=== PATIENT | male | born 1985 | race Caucasian/White ===

== ENCOUNTER 2023-07-05 13:44 | Emergency (ER) | payer OTHER ==
[~2023-07-05] VITALS: Ht 170.2 cm; Wt 92.5 kg
[2023-07-05 13:55] VITALS: O2SAT 98
[2023-07-05] MEDS ORDERED: ALPR-394 PO (14:06)
[2023-07-05] MEDS ORDERED: EMTR1TAB12 PO (14:06)
[2023-07-05] MEDS ORDERED: FINA1TAB18 PO (14:06)
[2023-07-05] MEDS ORDERED: METF-414 PO (14:06)
[2023-07-05] MEDS ORDERED: LOSA100T33 PO (14:06)
[2023-07-05] MEDS ORDERED: DILTIAZEM HCL 5MG/ML 5ML VIAL IV ONE (14:30)
[2023-07-05] MEDS ORDERED: DILTIAZEM HCL 5MG/ML 5ML VIAL IV NR ×2 (14:38→16:15)
[2023-07-05 15:12] LABS: CHLORIDE 111 mEq/L (98-107); INDEX HEMOLYSI 2 (1-3); INDEX ICTERIC 1 (1-4); INDEX LIPEMIC 1 (1-3); SODIUM 139 mEq/L (136-145)
[2023-07-05 15:16] LABS: BASOPHILS % 0.9 % (0.0-2.0); EOSINOPHILS % 1.5 % (0.0-5.0); HEMATOCRIT. 45.3 % (42.0-52.0); HEMOGLOBIN. 15.4 g/dL (14.0-18.0); MEAN CORPUSCULAR HEMOGLOBIN 30.6 pg (28.0-32.0); MEAN CORPUSCULAR HGB CONC 33.9 g/dL (31.0-37.0); MEAN CORPUSCULAR VOLUME 90.3 fL (80.0-94.0); MEAN PLATELET VOLUME 7.6 fl (7.4-10.4); MONOCYTES % 8.6 % (2.0-8.0); PLATELET 308 x1000/uL (130-400); RED BLOOD CELL COUNT 5.02 mill/uL (4.7-6.1); RED CELL DISTRIBUTION WIDTH 12.1 % (11.6-14.6)
[2023-07-05 15:28] LABS: ALANINE AMINOTRANSFERASE 25 IU/L (13-61); ASPARTATE AMINOTRANSFERASE 12 IU/L (15-37); BILIRUBIN TOTAL 0.2 mg/dL (0.1-1.0); CALCIUM 8.9 mg/dL (8.5-10.1); CARBON DIOXIDE 23 mEq/L (21-32); CREATININE 0.7 mg/dL (0.6-1.3); ETHANOL BLOOD < 10 mg/dL (<10); GLUCOSE 110 mg/dL (70-105); NT PRO B-TYPE NATRIURETIC PEP 469 pg/mL (5-125); PROTEIN TOTAL 7.6 g/dL (6.0-8.3); T4 FREE 1.17 ng/dL (0.76-1.46); TROPONIN I HIGH SENSITIVITY 13 ng/L (<78); UREA NITROGEN BLOOD 16 mg/dL (7-21)
[2023-07-05 16:40] VITALS: BP 128/69; PULSE 110; RESP 16; TEMP 98.6
[2023-07-05] MEDS ORDERED: DILTIAZEM HCL 120MG CAPSULE ER 24HR PO ONE (17:45)
[2023-07-05] MEDS ORDERED: DILT60TA35 MT (17:46)
== END 2023-07-05 17:58 | disposition left against medical advice (07) ==
LOC: ER 13:44
DX: I48.91 Unspecified atrial fibrillation (principal); F41.9 Anxiety disorder, unspecified; I10 Essential (primary) hypertension; Z90.49 Acquired absence of other specified parts of digestive tract; Z79.899 Other long term (current) drug therapy
CPT/HCPCS: 80053; 80320; 83880; 84439; 84443; 85025; 84484; 36415; 71045; 93005; 96374; 96376; 99291; J3490; Z7610 ×4; G0480